=== PATIENT | female | born 1985 | race Caucasian/White ===

== ENCOUNTER 2020-04-24 16:15 | Emergency (ER) | payer MEDICAID, OTHER ==
[~2020-04-24] VITALS: Ht 172.7 cm; Wt 77.3 kg
[2020-04-24] MEDS ORDERED: LIDOCAINE 1% MDV 20ML VIAL SC ONE (16:30)
[2020-04-24] MEDS ORDERED: KEFL500C17 PO (17:19)
--- NOTE | 2020-04-24 17:21 | REP ---
RIGHT INDEX FINGER SERIES: FOUR VIEWS. HISTORY: Trauma. FINDINGS: Four views of the right index finger demonstrate soft tissue edema and emphysema in the web space between the index and long finger at the MCP joint. No definitely intra-articular air is seen. No opaque foreign body is noted. There are metallic rings overlying the proximal phalanges of the thumb and ring finger. No fractures seen. IMPRESSION: Soft tissue emphysema in the web space between the 2nd and 3rd metacarpal heads. No fracture or opaque foreign body seen. Electronically Signed by Mitchel Cody MD 04/25/2020 08:11 A
[2020-04-24 17:27] VITALS: BP 135/92
== END 2020-04-24 17:29 | disposition home or self-care (01) ==
LOC: EDBD 16:15 → M ED 16:15
DX: S61.200A Unspecified open wound of right index finger without damage to nail, initial encounter (principal); Y92.9 Unspecified place or not applicable; Y93.9 Activity, unspecified; Y99.0 Civilian activity done for income or pay